=== PATIENT | male | born 1990 | race Caucasian/White ===

== ENCOUNTER 2018-08-03 17:20 | Emergency (ER) | payer SELFPAY ==
[2018-08-03 17:26] VITALS: TEMP 98.8
[2018-08-03 18:25] LABS: BASO # 0.1 K/uL (0.0-0.2); BASO % 0.6 % (0.0-2.0); EOS # 0.1 K/uL (0.0-0.7); EOS % 0.9 % (0.0-4.0); HEMOGLOBIN 12.9 g/dL (12.0-18.0); LYMPH # 2.2 K/uL (1.0-4.3); LYMPH % 25.8 % (20.0-40.0); MEAN CELL VOLUME 65.8 fl (80.0-94.0); MEAN CORPUSCULAR HEMOGLOBIN 21.1 pg (27.0-31.0); MEAN CORPUSCULAR HGB CONC 32.1 g/dL (33.0-37.0); MEAN PLATELET VOLUME 8.3 fl (7.2-11.7); MONO # 0.4 K/uL (0.0-0.8); MONO % 4.7 % (0.0-10.0); NEUT # 5.8 K/uL (1.8-7.0); NRBC % 0.1 % (0.0-0.0); RBC 6.13 Mil/uL (4.40-5.90); RED CELL DISTRIBUTION WIDTH 14.8 % (11.5-14.5); WHITE BLOOD COUNT 8.5 K/uL (4.8-10.8)
--- NOTE | 2018-08-03 18:26 | RAD ---
Date of service: 08/03/2018 HISTORY: Chest pain COMPARISON: No prior. TECHNIQUE: Chest PA and lateral FINDINGS: LINES AND TUBES: None. LUNG AND PLEURA: There is pulmonary hyperinflation and peribronchial cuffing with streaky opacities in the lungs. No focal consolidation. No pleural effusion or pneumothorax. HEART AND MEDIASTINUM: The heart is not enlarged. No aortic atherosclerotic calcification present. The hilar and mediastinal contours are within normal limits. SKELETAL STRUCTURES: The bony structures are within normal limits for the patient's age. VISUALIZED UPPER ABDOMEN: Normal. OTHER FINDINGS: None. IMPRESSION: Findings are most compatible with reactive small airway disease/ viral bronchitis. No lobar pneumonia.
[2018-08-03 18:28] LABS: ALB/GLOB RATIO 1.3 (1.0-2.1); ALBUMIN 4.1 g/dL (3.5-5.0); ALT/SGPT 19 U/L (21-72); AST/SGOT 23 U/L (17-59); BLOOD UREA NITROGEN 11 mg/dl (9-20); CALCIUM 9.2 mg/dL (8.4-10.2); GFR NON-AFRICAN AMERICAN > 60
[2018-08-03 18:29] LABS: INR 1.1; PROTHROMBIN TIME 12.5 Seconds (9.8-13.1)
[2018-08-03 18:32] LABS: PARTIAL THROMBOPLASTIN TIME 31.4 Seconds (25.6-37.1)
--- NOTE | 2018-08-03 18:33 | ED PDOC ---
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 Prior to arrival patient states the chest pain was pressure-like, lasted for 20 minutes and resolved spontaneously. Patient takes Metoprolol and he has not seen a doctor in 8 years because [place]. He is compliant with his medications. Otherwise patient denies shortness of breath, palpitation or leg swelling. PMD: no family provider Past Medical History Reviewed: Historical Data, Nursing Documentation, Vital Signs Vital Signs: Last Vital Signs Temp 98.8 F 08/03/18 17:25 Pulse 90 08/03/18 17:25 Resp 16 08/03/18 17:25 BP 119/68 08/03/18 17:25 Pulse Ox 98 08/03/18 17:25 - Medical History Other PMH: WPW - Surgical History Other surgeries: Cardiac ablation procedure - Family History Family History: States: Unknown Family Hx - Social History Current smoker - smoking cessation education provided: Yes Alcohol: None Drugs: Denies - Allergies Allergies/Adverse Reactions: Allergies Allergy/AdvReac Type Severity Reaction Status Date / Time No Known Allergies Allergy Verified 08/03/18 17:23 Review of Systems ROS Statement: Except As Marked, All Systems Reviewed And Found Negative (As per HPI, otherwise negative) Cardiovascular: Positive for: Chest Pain. Negative for: Palpitations Respiratory: Negative for: Shortness of Breath Musculoskeletal: Negative for: Other (leg swelling) Physical Exam - Physical Exam Appears: Positive for: No Acute Distress - Laboratory Results Result Diagrams: 08/03/18 18:12 08/03/18 18:12 - ECG ECG: Positive for: Interpreted By Me, Viewed By Me Interpretation Of Abn EKG: abnormal EKG, DTV inversions, QA exam I and L Rate: 92 O2 Sat by Pulse Oximetry: 98 (RA) Pulse Ox Interpretation: Normal Medical Decision Making Medical Decision Making: Time: 1801 Initial Impression: chest pain with benign exam and abnormal EKG Differential Diagnosis: coronary artery syndrome, CHF, costochondritis, arrhythmia EKG B-type natriuretic peptide CMP Creatine phosphokinase Magnesium Phosphorous Troponin CBC w/ Differential PTT Prothrombin Time 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 TECHNIQUE: Chest PA and lateral FINDINGS: LINES AND TUBES: None. LUNG AND PLEURA: There is pulmonary hyperinflation and peribronchial cuffing with streaky opacities in the lungs. No focal consolidation. No pleural effusion or pneumothorax. HEART AND MEDIASTINUM: The heart is not enlarged. No aortic atherosclerotic calcification present. The hilar and mediastinal contours are within normal limits. SKELETAL STRUCTURES: The bony structures are within normal limits for the patient's age. VISUALIZED UPPER ABDOMEN: Normal. OTHER FINDINGS: None. IMPRESSION: Findings are most compatible with reactive small airway disease/ viral bronchitis. No lobar pneumonia. Serial troponin is negative and patient is stable for discharge. Repeat EKG quijano not show any changes. Patient reports he has abnormal EKG due to chronic heart disease. Upon provider reevaluation patient is feeling better, is medically stable, and requires no further treatment in the ED at this time. Patient will be discharged home. Counseling was provided and all questions were answered regarding diagnosis and need for follow up with clinic. There is agreement to discharge plan. Return if symptoms persist or worsen. - ---- Scribe Attestation: Documented by Farzad Marin, acting as a scribe for Myrna Babcock MD Provider Scribe Attestation: All medical record entries made by the Scribe were at my direction and personally dictated by me. I have reviewed the chart and agree that the record accurately reflects my personal performance of the history, physical exam, medical decision making, and the department course for this patient. I have also personally directed, reviewed, and agree with the discharge instructions and disposition. Disposition - Clinical Impression Clinical Impression: Chest pain - Patient ED Disposition Is Patient to be Admitted: No - Disposition Referrals: [facility] [Outside] - 08/04/18 ([facility] EN 2-3 MAY) Disposition: Routine/Home Condition: STABLE Additional Instructions: CONTINUE [facility] Instructions: Chest Pain (DC) Print Language: KINYARWANDA
[2018-08-03 18:41] LABS: B-TYPE NATRIURETIC PEPTIDE 70.6 pg/ml (0-450)
[2018-08-03 21:53] VITALS: BP 113/57; RESP 18
[2018-08-03 21:58] VITALS: PULSE 92; O2SAT 98
--- NOTE | 2018-08-04 18:20 | CARD ---
APPROVED REPORT Date of service: 08/03/2018 EKG Measurement Heart [id number] <Conclusion> Sinus rhythm with short [place] Lateral infarct, age undetermined ST & T wave abnormality, consider inferior ischemia ST & T wave abnormality, consider anterior ischemia Abnormal ECG
--- NOTE | 2018-08-04 18:41 | CARD ---
APPROVED REPORT Date of service: 08/03/2018 EKG Measurement Heart [id number] <Conclusion> Normal sinus rhythm Nonspecific intraventricular block Possible Lateral infarct, age undetermined Left ventricular hypertrophy with secondary repolarization abnormalities Abnormal ECG
== END 2018-08-03 22:05 | disposition home or self-care (01) ==
LOC: H.ER 17:20
DX: R07.9 Chest pain, unspecified (principal); F17.200 Nicotine dependence, unspecified, uncomplicated
CPT/HCPCS: 71046; 80053; 82550; 83735; 83880; 84100; 84484; 85025; 85610; 85730; 93005; 96374; 99285; J1885